=== PATIENT | female | born 1990 | race African-American/Black ===

== ENCOUNTER → 2016-07-14 | Outpatient (CLI) | payer MEDICAID ==
[~2016-07-14] MED LIST: DOXY10TA PO; HYDR-3516 PO; PRENTAB72 PO; VALT500T PO; ZOFR4TAB3 SL
== END ==
LOC: HPND 09:10
PROVIDERS: ATTEND Obstetrics & Gynecology
DX: O09.299 Supervision of pregnancy with other poor reproductive or obstetric history, unspecified trimester (principal); O09.219 Supervision of pregnancy with history of pre-term labor, unspecified trimester; Z3A.00 Weeks of gestation of pregnancy not specified
CPT/HCPCS: 76816; 76817

== ENCOUNTER 2016-07-20 22:55 | Emergency (ER) | payer MEDICAID ==
[~2016-07-20 22:55] MED LIST changes: -HYDR-3516 PO; -VALT500T PO
[2016-07-21 00:03] LABS: BACTERIA, URINE RARE /hpf; BLOOD, URINE NEG (NEG); GLUCOSE,URINE NEG (NEG); KETONE, URINE NEG (NEG); NITRITE,URINE NEG (NEG); SQUAMOUS EPITHELIAL CELL URINE 1 /hpf (0-5); URINE COLOR LIGHT-YELLOW (YELLW/STRAW)
[2016-07-21 00:04] LABS: COMMENT (UR) CULT NOT INDICATED; CULTURE IF INDICATED CULT NOT INDICATED
--- NOTE | 2016-07-21 00:10 | PD ---
HPI Chief Complaint pelvic pressure Date Seen: Jul 21, 2016 Travel History International Travel<30 Days: No Contact w/Intl Traveler<30Days: No Known Affected Area: No History of Present Illness HPI 26 yo @ 22w1d with URSULA 11-23-2016. care with Dr. Salguero. Patient with history of 19 week loss from early ROM, followed by term . She is currently on weekly Progesterone injections this . She had an US with the MFM and cervical length this week which was WNL. Cervical length 3.9cm. Tonight she presents with c/o pelvic pressure. Symptoms described as pain along sides of uterus which go down into vaginal area. She has noted bladder irritability this week. Denies LOF, UC, VB. +FM History Past Medical History Medical History: Denies Significant Hx Obstetric History Obstetric History First had leakage of fluid for a week, followed by bleeding and loss at 19 weeks Second term @ 39 weeks, no complications Past Surgical History Surgical History: No Previous Surgery Family History Family History: Negative Social History Alcohol Use: No Tobacco Use: No Substance Abuse: No Allergies-Medications (Allergen,Severity, Reaction): Coded Allergies: No Known Allergies (Verified , 04/02/16) Home Meds Reported Medications Vit W/ Ferrous Fumara () Tab1 Tab PO DAILY 04/02/16 Diclegis1 Tab 1 Tab Tab10 Mg PO PRN (NAUSEA) 04/02/16 Review of Systems General / Constitutional: No: Fever, Chills HENT: No: Headaches, Vertigo Cardiovascular: No: Chest Pain or Discomfort, Palpitations Respiratory: No: Cough, Short of Breath Gastrointestinal: Abdominal Pain (round ligament pain), Other (pelvic pressure) , No: Nausea, Vomiting Genitourinary: No: Urgency, Frequency, Dysuria, Discharge, Vaginal Bleeding Musculoskeletal: No: Limited ROM, Weakness, Edema Skin: No Rash, No Itching Neurologic: No: Syncope, Focal Abnormalities Physical Exam Narrative GENERAL: Well-nourished, well-developed patient. SKIN: Warm and dry. HEAD: Normocephalic and atraumatic. CARDIOVASCULAR: Regular rate or rubs. RESPIRATORY: No accessory muscle use. ABDOMEN/GI: Abdomen soft, non-tender, , no rebound, no guarding Gravid GENITOURINARY: External Genitalia: intact and normal in appearance BUS glands: [-] SVE: Cervix closed/thick c/w 3cm+/posterior FHT's: 150s by doppler TOCO: No UC noted or palpated EXTREMITIES: No cyanosis or edema. BACK: Nontender without obvious deformity. Normal ROM NEUROLOGICAL: Awake and alert. Motor and sensory grossly within normal limits. Normal speech. Data Data Vital Signs Reviewed: Yes Orders Vital Signs (Adult) .ON ADMISSION (07/20/16 23:23) ^ Labor Status (07/20/16 23:23) Urinalysis - C+S If Indicated (07/20/16 23:23) ^ Non Stress Test (07/20/16 23:23) Labs Laboratory Tests Test 07/20/16 23:10 Urine Color LIGHT-YELLOW (YELLW/STRAW) Urine Turbidity CLEAR (CLEAR) Urine pH 6.0 (5.0-8.5) Urine Specific Wells 1.005 (1.002-1.035) Urine Protein NEG mg/dL (NEG-TRACE) Urine Glucose (UA) NEG mg/dL (NEG) Urine Ketones NEG mg/dL (NEG) Urine Occult Blood NEG (NEG) Urine Nitrite NEG (NEG) Urine Bilirubin NEG (NEG) Urine Urobilinogen LESS THAN 2.0 MG/DL (LESS THAN 2.0) Urine Leukocyte Esterase NEG (NEG) Urine RBC LESS THAN 1 /hpf (0-3) Urine WBC 1 /hpf (0-5) Urine Squamous Epithelial 1 /hpf (0-5) Cells Urine Bacteria RARE /hpf (NONE) Microscopic Urinalysis Comment CULT NOT INDICATED MDM Narrative Course / MDM 22 weeks History of 19 week loss after early ROM, followed by term Weekly Progesterone this Normal cervical length this week 3.9cm UA negative SVE closed/thick/posterior Symptoms at this time c/o round ligament pain Plan D/c home Per [facility] report, repeat cervical length in 2 weeks, Dr. Salguero told patient to have done next week She will call the office tomorrow for clarification Precautions reviewed, return to [facility] as needed Diagnosis Diagnosis: Primary Impression: Round ligament pain Additional Impressions: History of loss 22 weeks gestation of Disposition: DISCHARGE HOME Condition: Stable Patient Instructions: General Instructions, Labor (ED), Abdominal Pain in (ED) Additional Instructions: RETURN FOR CONTRACTIONS, LOSS OF FLUID (WATER BREAKING), VAGINAL BLEEDING, OR DECREASED MOVEMENT. DRINK 8-10 LARGE GLASSES OF WATER EVERY DAY. KEEP SCHEDULED APPOINTMENT WITH YOUR PROVIDER. Departure Forms: Tests/Procedures Amairani Mckeon MD Jul 21, 2016 00:10
== END 2016-07-21 00:57 | disposition home or self-care (01) ==
LOC: HOBED 22:55
DX: O26.892 Other specified pregnancy related conditions, second trimester (principal); R10.2 Pelvic and perineal pain; O09.292 Supervision of pregnancy with other poor reproductive or obstetric history, second trimester; Z3A.22 22 weeks gestation of pregnancy
CPT/HCPCS: 81001; 99284

== ENCOUNTER 2016-11-16 05:41 | Inpatient (IN) | payer MEDICAID ==
[2016-11-16] VITALS (127 sets, daily range): BP systolic 69–121; BP diastolic 32–83; PULSE 73–228; RESP 8–20; TEMP 97.6–99.3
[~2016-11-16] VITALS: Ht 157.5 cm; Wt 91.6 kg
[~2016-11-16 05:41] MED LIST changes: -ZOFR4TAB3 SL
[2016-11-16] MEDS ORDERED: ONDANSETRON HCL 4 MG/2 ML VIAL IV PRN (06:30)
[2016-11-16] MEDS ORDERED: NS 1000 ML IV PRN (06:30)
[2016-11-16] MEDS ORDERED: MINERAL OIL 10 ML VIAL TOPICAL PRN (06:30)
[2016-11-16] MEDS ORDERED: LACTATED RINGER'S 1000 ML IV SCH (06:30)
[2016-11-16] MEDS ORDERED: LACTATED RINGER'S 1000 ML BOLUS IV PRN (06:30)
[2016-11-16] MEDS ORDERED: OXYTOCIN 30 UNITS 500ML PREMIX IV ONE (06:30)
[2016-11-16] MEDS ORDERED: NS 500 ML BOLUS IV PRN (06:30)
[2016-11-16] MEDS ORDERED: [UNRECOGNIZED DRUG - REMARK] PO SCH (06:30)
[2016-11-16] MEDS ORDERED: LIDOCAINE HCL 1% 50 ML VIAL I-DERMAL PRN (06:30)
[2016-11-16] MEDS ORDERED: LIDOCAINE HCL 1% 50 ML VIAL INFIL PRN (06:30)
[2016-11-16] MEDS ORDERED: VALT500T PO (06:31)
[2016-11-16] MEDS ORDERED: OXYTOCIN 30 UNITS/NS 500ML PREMIX IV SCH (06:45)
[2016-11-16 06:52] LABS: AUTOMATED NEUTROPHIL # 7.7 TH/MM3 (1.8-7.7); BASOPHIL % 0.3 % (0.0-2.0); EOSINOPHIL # 0.1 TH/MM3 (0-0.4); EOSINOPHIL % 0.5 % (0.0-4.0); LYMPH % 19.9 % (9.0-44.0); LYMPHOCYTE # 2.3 TH/MM3 (1.0-4.8); MEAN CELL VOLUME 61.9 FL (80.0-100.0); MEAN CORPUSCULAR HEMOGLOBIN 18.9 PG (27.0-34.0); MEAN CORPUSCULAR HGB CONC 30.5 % (32.0-36.0); MONO % 12.1 % (0.0-8.0); NEUT % 67.2 % (16.0-70.0); PLATELET COUNT 270 TH/MM3 (150-450); RED BLOOD COUNT 3.59 MIL/MM3 (4.00-5.30); RED CELL DISTRIBUTION WIDTH 19.2 % (11.6-17.2); WHITE BLOOD COUNT 11.5 TH/MM3 (4.0-11.0)
[2016-11-16 06:57] LABS: HEMO FLAGS AUTO DIFF
[2016-11-16 06:58] LABS: HEMATOCRIT 22.2 % (35.0-46.0)
[2016-11-16 07:29] LABS: BACTERIA, URINE MOD /hpf; BLOOD, URINE NEG (NEG); GLUCOSE,URINE NEG (NEG); HYALINE CAST, URINE 1 /lpf (RARE); KETONE, URINE NEG (NEG); NITRITE,URINE NEG (NEG); PH, URINE 6.5 (5.0-8.5); SQUAMOUS EPITHELIAL CELL URINE 2 /hpf (0-5); URINE COLOR LIGHT-YELLOW (YELLW/STRAW)
[2016-11-16 07:30] LABS: COMMENT (UR) CULTURE INDICATED; CULTURE IF INDICATED CULTURE INDICATED
[2016-11-16 07:43] LABS: SCAN/DIFF AUTO DIFF CONFIRMED
[2016-11-16] MEDS ORDERED: fentaNYL 2MCG-BUPIV 0.125% INJ 100 ML ONE ×2 (09:22→17:49)
[2016-11-16] MEDS ORDERED: ePHEDrine/NS 25 MG/5 ML SYR ONE (09:22)
[2016-11-16] MEDS: ePHEDrine/NS 25 MG/5 ML SYR IV PRN ×2 (12:00→19:05)
[2016-11-16] MEDS ORDERED: DIPHTH/TETANUS/ACEL PERTUSSIS (BOOSTER) 0.5 ML VIAL/PFS IM ONE (16:00)
[2016-11-16] MEDS ORDERED: MEASLES, MUMPS, RUBELLA VACCINE 0.5 ML VIAL SQ ONE (16:00)
[2016-11-16] MEDS ORDERED: diphenhydrAMINE HCL 50 MG/ML VIAL IV ONE (18:00)
[2016-11-16] MEDS ORDERED: DO NOT ADMINISTER ANTICOAGULANTS PRN (19:00)
[2016-11-16] MEDS ORDERED: fentaNYL 2MCG-BUPIV 0.125% 100 ML EPIDURAL SCH (19:00)
[2016-11-16] MEDS ORDERED: NO SYSTEM NARCOTICS PRN (19:00)
--- NOTE | 2016-11-16 20:49 | PD.OB.DELI ---
Delivery Date: November 16, 2016 Anesthesia: Epidural Episiotomy: None Vaginal Delivery: Normal Presentation: Occiput anterior Nuchal Cord: x1 Delayed cord clamping (45 sec): Yes : Male, Single One Minute : 8 Five Minute : 9 Weight: 7-9 Placenta: Spontaneous delivery, Intact, 3 vessel cord Laceration: No lacerations Nevaeh Salguero MD November 16, 2016 20:48
[2016-11-16] MEDS ORDERED: SODIUM CHLORIDE 0.9% FLUSH 10 ML FLUSH IV FLUSH SCH (21:00)
[2016-11-16] MEDS ORDERED: ALUMINUM/MAGNESIUM/SIMETH 30 ML CUP PO PRN (21:00)
[2016-11-16] MEDS ORDERED: DOCUSATE SODIUM 50 MG/SENNA 8.6 MG TAB PO PRN (21:00)
[2016-11-16] MEDS ORDERED: WITCH HAZEL 50%/GLYCERIN 12.5% 40 PAD JAR TOPICAL PRN (21:00)
[2016-11-16] MEDS ORDERED: ZOLPIDEM TARTRATE 5 MG TAB PO PRN (21:00)
[2016-11-16] MEDS ORDERED: BENZOCAINE 20% TOPICAL SPRAY 60 ML CAN TOPICAL PRN (21:00)
[2016-11-16] MEDS ORDERED: OXYTOCIN 30 UNITS-500ML PREMIX 500 ML IV ONE (21:00)
[2016-11-16] MEDS ORDERED: OXYTOCIN 10 UNIT/ML AMP XX PRN (21:00)
[2016-11-16] MEDS ORDERED: SODIUM CHLORIDE 0.9% FLUSH 10 ML FLUSH IV FLUSH PRN (21:00)
[2016-11-16] MEDS ORDERED: oxyCODONE/ACETAMINOPHEN 5 MG/325 MG TAB PO PRN ×2 (21:00)
[2016-11-16] MEDS ORDERED: ONDANSETRON ODT 4 MG TAB PO PRN (21:00)
[2016-11-17] MEDS: IBUPROFEN 600 MG TAB PO PRN ×3 (00:11→16:36)
[2016-11-17] MEDS: ACETAMINOPHEN 325 MG TAB PO PRN ×2 (04:00→07:46)
[2016-11-17 08:00] VITALS: BP 104/71; PULSE 86; RESP 17; TEMP 97.6
[2016-11-17 20:00] VITALS: BP 115/72; PULSE 96; RESP 18; TEMP 98.1
[2016-11-17] MEDS: ACETAMINOPHEN/HYDROcodone 325 MG/5 MG TAB PO PRN (20:18)
[2016-11-18] MEDS: ACETAMINOPHEN/HYDROcodone 325 MG/5 MG TAB PO PRN (05:04)
[2016-11-18] MEDS ORDERED: HYDR-3516 PO (07:56)
--- NOTE | 2016-11-18 07:57 | HHI.DCPOC ---
Discharge Care Plan Your Health Problems Are: Vaginal delivery Report Symptoms to Your Doctor -Temperate above 100.5 degrees -Redness, of incision or excessive or foul smelling drainage -Unusual pain or calf pain -Increased vaginal bleeding -Painful or difficulty urinating -Feelings of extreme sadness or anxiety after 2 weeks Goals to Promote Your Health * To prevent worsening of your condition and complications * To maintain your health at the optimal level Directions to Meet Your Goals Take your medications as prescribed Follow your dietary instruction Follow activity as directed Ensure plenty of rest for recovery Drink fluids for hydration Keep your appointments as scheduled Take your immunizations and boosters as scheduled If your symptoms worsen call your PCP, if no PCP go to Urgent Care Center or Emergency Room Smoking is Dangerous to Your Health. Avoid second hand smoke Call the 24-hour crisis hotline for domestic abuse at Maricel Mari MD November 18, 2016 07:57
[2016-11-18 08:15] VITALS: BP 112/77; PULSE 86; RESP 16; TEMP 97.9
[2016-11-18] MEDS: IBUPROFEN 600 MG TAB PO PRN (10:03)
[2016-11-18] MEDS: ACETAMINOPHEN 325 MG TAB PO PRN (10:03)
== END 2016-11-18 11:53 | disposition home or self-care (01) | DRG 775 ==
LOC: H2EB 05:41 → H1EA 23:34
PROVIDERS: ADMIT Obstetrics & Gynecology; ATTEND Obstetrics & Gynecology
PROC: 10E0XZZ Delivery of Products of Conception, External Approach (ICD-10-PCS; principal; 2016-11-16)
PROC: 3E0S3CZ (ICD-10-PCS; 2016-11-16)
PROC: 00HU33Z Insertion of Infusion Device into Spinal Canal, Percutaneous Approach (ICD-10-PCS; 2016-11-16)
DX: O80 Encounter for full-term uncomplicated delivery (principal); Z37.0 Single live birth; Z3A.39 39 weeks gestation of pregnancy
CPT/HCPCS: 59025; 81001; 85025; 86900; 86901; 87086; 90715; J1200; J2405; J2590; J3010; J7120